=== PATIENT | male | born 1950 | race Two or more races ===

== ENCOUNTER 2021-01-15 12:28 | Emergency (ER) | payer OTHER ==
[~2021-01-15] VITALS: Ht 175.3 cm; Wt 81.6 kg
[2021-01-15 14:49] VITALS: BP 130/74
== END 2021-01-15 15:32 | disposition home or self-care (01) ==
LOC: ER 12:28
DX: M79.10 Myalgia, unspecified site (principal); R07.81 Pleurodynia
CPT/HCPCS: 71101; 93005